=== PATIENT | female | born 1990 | race Caucasian/White ===

== ENCOUNTER 2023-09-23 11:57 | Emergency (ER) | payer MEDICAID, SELFPAY ==
--- NOTE | ~2023-09-23 | US_ITS ---
EXAMINATION: US OBSTETRICAL ULTRASOUND CLINICAL INFORMATION: Low abdominal pain, bleeding. COMPARISON: None available. LMP: 07/24/2023. Gestational age by maternal dates is 8 weeks and 5 days. Estimated date of delivery by maternal dates is 04/29/2024. TECHNIQUE: Ultrasound of the maternal pelvis is performed using transabdominal and transvaginal transducers. Transvaginal imaging is performed due to inadequate visualization transabdominally. M-mode Doppler is also performed. FINDINGS: There is a single intrauterine gestational sac with visible yolk sac, embryo/fetus, and cardiac activity. There is no significant subchorionic hemorrhage or hematoma. HR: 160 beats per minute. CRL (crown rump length): 2.18 cm (8 weeks and 6 days +/- 4 days). JUVENTINO (estimated date of delivery): 04/28/2024 +/- 4 days. MATERNAL ADNEXA: The right maternal ovary measures 3.8 x 1.8 x 2.3 cm. The left maternal ovary measures 2.9 x 1.8 x 1.7 cm. There is no significant maternal adnexal mass. No maternal pelvic ascites. US/US OB <= 14 weeks fetus IMPRESSION: 1. Single intrauterine gestation with ultrasound gestational age of 8 weeks and 6 days +/- 4 days. 2. Estimated date of delivery is 04/28/2024 +/- 4 days. 3. No maternal adnexal mass or pelvic ascites.
--- NOTE | 2023-09-23 12:02 | ED.PREGNANCY ---
HPI - General Chief complaint: Vaginal Bleeding Stated complaint: -severe pain and bleeding Time Seen by Provider: 09/23/23 14:49 Source: patient Mode of arrival: ambulatory Limitations: no limitations History of Present Illness HPI Narrative: Patient is a 33-year-old female , LMP 07/24/2023 presenting to the emergency department reporting 2 positive home tests as well as intermittent spotting of dark red blood for the past 2 weeks and nausea and vomiting daily. She reports that her previous childbirth was in [place], does not have an OBGYN here. She reports the bleeding is very small amounts, not even enough to where a pad, but occasionally she notes when wiping after using the bathroom. Also reports occasional lower abdominal cramping. She denies any concern for STIs, denies any other abnormal vaginal discharge. Denies fevers. Denies back or flank pain. Denies any dysuria, frequency or other urinary symptoms. MD Complaint: vaginal bleeding Onset (ago): day(s) Pain Consistency: intermittent Location: abdomen Severity: mild Quality: Cramping Associated symptoms: nausea and vomiting Vaginal discharge: other (Scant amount of dark red discharge occasionally) Vaginal bleeding: light Date of Last Menstrual Period: 07/24/23 Patient : Yes care: none Related Data Previous Rx's Medication Instructions Recorded cephalexin 500 mg capsule 500 mg PO TID #15 caps 09/23/23 ondansetron 4 mg disintegrating 4 mg PO Q8H PRN nausea and 09/23/23 tablet vomiting #10 tabs Allergies Allergy/AdvReac Type Severity Reaction Status Date / Time No Known Allergies Allergy Verified 09/23/23 12:05 Review of Systems Review of Systems: As per HPI. Yes all other systems are reviewed and are negative Constitutional: Constitutional: Reports as per HPI PMF Past Medical History Date of Last Menstrual Period: 07/24/23 Social History Social History Advance Directives: No Advance Directives Information Provided: No Patient : Yes Physical Exam Vital Signs: Vital Signs: Last Vital Signs Temp 98.7 F 09/23/23 12:06 Pulse 81 09/23/23 12:06 Resp 17 09/23/23 12:06 BP 128/75 09/23/23 12:06 Pulse Ox 97 09/23/23 12:06 O2 Del Method Room Air 09/23/23 12:06 BMI result Body Mass Index 25.5 Vital signs have been reviewed and appear to be correct. Blood pressure normal. Heart rate normal. Respiratory rate normal. Temperature normal. Oxygen saturation normal. Const: General: cooperative, healthy appearing and no acute distress Orientation/consciousness: oriented to person, oriented to place, oriented to time and patient oriented x3 Limitations: no limitations HEENT: Head: Yes normocephalic and Yes atraumatic Ears: external ears normal General nose exam: Normal external nose present Face and sinus: Yes face symmetric Mouth: oropharynx normal and moist mucous membranes Throat: Yes uvula midline Eyes: Pupils: Equal, round and reactive pupils present Neck: Neck: Yes normal visual inspection and Yes supple Resp: Effort & Inspection: normal respiratory effort and able to speak in complete sentences Auscultation: clear to auscultation bilaterally Cardio: Rate: regular rate Rhythm: regular rhythm Heart sounds: S1 normal heart sound present and S2 normal heart sound present GI: Palpation (GI): Soft to palpation and nontender Auscultation: normoactive bowel sounds : General: Yes no CVA tenderness Back/Spine/Pelvis: Back: no CVA tenderness Skin: General skin exam: elasticity normal and turgor normal Neuro: General: oriented to person, oriented to place, oriented to time, patient oriented x3, moves all extremities, no focal motor deficits and CN's II-XI intact bilaterally Cranial nerves: Yes Equal, round and reactive pupils present Cognition (Neuro): normal cognition Extrem: General: Yes full ROM, Yes no pedal edema and Yes no calf tenderness Psych: Mental Status: mental status grossly normal Affect: normal affect Thought process: Normal thought process present Course Course Course Narrative: RME: 33 year-old F presenting to the ED c/o 2 positive home tests last week, now with lower abdominal pain and vaginal bleeding/spotting (dark red) x 15 days. Has not had any care. LMP 07/24/23. +N/V and inability to tolerate PO Labs, UA, US ordered Full HPI, ROS and PE to be performed by primary ED provider. Medical Decision Making Medical Decision Making MDM Narrative: Patient is a 33-year-old female , LMP 07/24/2023 presenting to the emergency department reporting 2 positive home tests as well as intermittent spotting of dark red blood for the past 2 weeks and nausea and vomiting daily. On exam patient is awake, A+Ox3, VS WNL, afebrile, normal neurological exam without focal deficits, physical exam findings as above. Given reported symptoms and physical exam findings, initial differential includes intrauterine , ectopic , implantation bleeding. Labs notable for RH positive, no Rhogam indicated, no evidence of anemia. Ultrasound notable for Single intrauterine gestation with visible yolk sac, cardiac activity. My interpretation is in agreement with the radiologist's interpretation. Will refer patient to [facility] microstrategy reports developer as patient does not have an OBGYN in the [facility]. Patient declined pelvic exam/STI testing at this time, advised patient to follow up on this with [facility]. UA notable for trace leukocytes, negative nitrites, 1+ bacteria, 6-10 epithelials. Likely contamination but will treat for UTI given with keflex. Will prescribe zofran for nausea. Return precautions discussed at bedside. Patient verbalized understanding of and agreement with plan. Differential Diagnosis Differential Diagnoses: The differential diagnosis associated with the presentation includes As per MDM. Lab Data [facility] Lab Attestation statement: I reviewed the patient's lab results. As per MDM. 09/23/23 12:35 09/23/23 12:35 Labs: Lab Results 09/23/23 09/23/23 Range/Units 12:34 12:35 WBC 9.7 (4.8-10.8) X10*3/uL RBC 3.91 L (4.20-5.50) X10*6/uL Hgb 12.2 (12.0-16.0) g/dl Hct 35.6 L (37.0-47.0) % MCV 91.0 (80.0-98.0) fL MCH 31.2 (27.0-33.0) pg MCHC 34.3 (31.0-35.0) g/dl RDW 11.9 (11.0-16.0) % Plt Count 291 (160-400) X10*3/uL MPV 9.8 (9.4-12.3) fL Immature Gran % (Auto) 0.5 H (0.0-0.4) % Neut % (Auto) 71.6 (45-73) % Lymph % (Auto) 22.0 (20-40) % Gregory % (Auto) 4.8 (2-11) % Eos % (Auto) 0.9 (0-4) % Baso % (Auto) 0.2 (0-2) % Lymph # (Auto) 2.1 (1.2-4.9) X10*3/uL Gregory # (Auto) 0.5 (0.1-1.2) X10*3/uL Eos # (Auto) 0.1 (0.0-0.4) X10*3/uL Baso # (Auto) 0.0 (0.0-0.2) X10*3/uL Abs Immat Gran (auto) 0.05 H (0.00-0.03) X10*3/uL Absolute Neuts (auto) 6.9 (2.0-8.3) x10*3/uL Absolute Nucleated RBC 0.000 (0.0-0.012) X10*3/uL Nucleated RBC % (auto) 0.0 (0.0-0.2) /100WBC Sodium 135 (135-145) mmol/L Potassium 3.6 (3.3-5.1) mmol/L Chloride 103 (96-108) mmol/L Carbon Dioxide 24 (22-29) mmol/L Anion Gap 12 (12-20) BUN 6 L (9-16) mg/dL Creatinine 0.61 (0.5-1.4) mg/dL Estim Creat Clear Calc 129.6 Estimated GFR > 60 Random Glucose 95 (60-115) mg/dL Calcium 9.7 (8.4-10.2) mg/dL Magnesium 1.7 (1.6-2.6) mg/dL Total Bilirubin 0.4 (0.0-1.0) mg/dL Direct Bilirubin 0.2 (0.0-0.5) mg/dL AST 48 H (5-31) U/L ALT 111 H (0-31) U/L Alkaline Phosphatase 82 (39-117) U/L Total Protein 7.9 (6.5-8.0) g/dL Albumin 4.3 (3.5-5.0) g/dL Lipase 19 (8-78) U/L Beta HCG, Quant 146589 mIU/mL Urine Color Dark Yellow Urine Appearance Cloudy Urine pH 5.5 (5.0-9.0) Ur Specific [place] >= 1.030 H (1.005-1.025) Urine Protein Trace (Neg-Trace) mg/dL Urine Glucose (UA) Negative (Negative) mg/dL Urine Ketones Trace (Negative) mg/dL Urine Blood Moderate (2+) H (Negative) Urine Nitrite Negative (Negative) Ur Leukocyte Esterase Trace H (Negative) Urine RBC 6-10 H (0-2) /HPF Urine WBC 0-5 (0-5) /HPF Ur Squamous Epith Cells 6-10 (0-2) /HPF Urine Bacteria 1+ (None Seen) Hyaline Casts 0-2 (0-2) /LPF Blood Type O Positive Independent Interpretation I performed an independent interpretation of an: Ultrasound Interpretation: Single intrauterine gestation with visible yolk sac, cardiac activity Radiology Impression Discussion of test interpretation with radiology: I have reviewed the radiologist's reading. Radiologist Impression: US/US OB <= 14 weeks fetus IMPRESSION: 1. Single intrauterine gestation with ultrasound gestational age of 8 weeks and 6 days +/- 4 days. 2. Estimated date of delivery is 04/28/2024 +/- 4 days. 3. No maternal adnexal mass or pelvic ascites. External Record Review External record reviewed: Inpatient record, Office record and Outpatient record Prescription Management I considered prescription management with: Antibiotic and Other Discharge Plan Discharge Clinical Impression: Threatened , Vaginal bleeding, Intrauterine Patient Disposition: Home, Self-Care Instructions: Threatened Miscarriage (ED), (ED), Urinary Tract Infection in (ED), at 7 to 10 Weeks (ED) Additional Instructions: Usted fue evaluada hoy en el departamento de emergencias por sangrado vaginal beau el embarazo. Deber? realizar un seguimiento con un obstetra/ginec?logo lo antes posible; llame a los n?meros proporcionados para establecer la atenci?n con un obstetra/ginec?logo. Est? recibiendo tratamiento por cyndie infecci?n del tracto urinario con antibi?ticos; complete el tratamiento completo seg?n lo prescrito. Le recetan ondansetr?n, que puede tati cada 8 horas para las n?useas y los v?mitos. Debe regresar al departamento de emergencias si presenta un dolor abdominal que empeora, fiebre de 100.4 F o m?s, sangra a cuong?s de m?s de cyndie toalla sanitaria por hora o tiene cualquier otro s?ntoma preocupante. Prescriptions: New ondansetron 4 mg tablet,disintegrating 4 mg PO Q8H PRN (Reason: nausea and vomiting) Qty: 10 0RF cephalexin 500 mg capsule 500 mg PO TID Qty: 15 0RF Referrals: [facility] [Provider Group] [facility] [Provider Group] Print Language: Mongolian
[2023-09-23 12:06] VITALS: BP 128/75; PULSE 81; RESP 17; TEMP 37.1; O2SAT 97; BMI 25.5
[2023-09-23 12:39] LABS: MANUAL DIFF FLAG NO
[2023-09-23 12:43] LABS: Appearance Urine Cloudy; Color Urine Dark Yellow; Glucose Urine UA Negative (Negative); Leukocyte Esterase Urine Trace (Negative); Nitrite Urine Negative (Negative); PH 5.5 (5.0-9.0); UMIC TRIGGER UACC YES; Urine Blood Moderate (2+) (Negative); Urine Ketones Trace mg/dL (Negative); Urine Protein Trace mg/dL (Neg-Trace)
[2023-09-23 12:45] LABS: Basophils Percent Auto 0.2 % (0-2); Eosinophils Absolute Auto 0.1 X10*3/uL (0.0-0.4); Eosinophils Percent Auto 0.9 % (0-4); Hematocrit 35.6 % (37.0-47.0); Hemoglobin 12.2 g/dl (12.0-16.0); Imm Gran Abs Auto 0.05 X10*3/uL (0.00-0.03); Imm Gran Pct Auto 0.5 % (0.0-0.4); Lymphocytes Absolute Auto 2.1 X10*3/uL (1.2-4.9); Mean Corpuscular HGB Conc 34.3 g/dl (31.0-35.0); Mean Corpuscular Hemoglobin 31.2 pg (27.0-33.0); Mean Platelet Volume 9.8 fL (9.4-12.3); Monocytes Absolute Auto 0.5 X10*3/uL (0.1-1.2); Monocytes Percent Auto 4.8 % (2-11); Neutrophils Absolute Auto 6.9 x10*3/uL (2.0-8.3); Neutrophils Percent Auto 71.6 % (45-73); Platelet Count 291 X10*3/uL (160-400); Red Blood Count 3.91 X10*6/uL (4.20-5.50); Red Cell Distribution Width 11.9 % (11.0-16.0); White Blood Count 9.7 X10*3/uL (4.8-10.8)
[2023-09-23 13:00] LABS: Bacteria Urine 1+ (None Seen); Hyaline Casts Urine 0-2 /LPF (0-2); Specific Gravity - Urine >= 1.030 (1.005-1.025); WBC Urine 0-5 /HPF (0-5)
[2023-09-23 13:06] LABS: Alanine Aminotransferase 111 U/L (0-31); Albumin Level 4.3 g/dL (3.5-5.0); Alkaline Phosphatase 82 U/L (39-117); Anion Gap 12 (12-20); Aspartate Amino Transferase 48 U/L (5-31); Bilirubin Direct 0.2 mg/dL (0.0-0.5); Bilirubin Total 0.4 mg/dL (0.0-1.0); Blood Urea Nitrogen 6 mg/dL (9-16); Calcium 9.7 mg/dL (8.4-10.2); Carbon Dioxide 24 mmol/L (22-29); Chloride 103 mmol/L (96-108); Creatinine Clr Calc Pharmacy 129.6; Estimated Glomerular Filt Rate > 60; Glucose Random 95 mg/dL (60-115); Lipase 19 U/L (8-78); Magnesium 1.7 mg/dL (1.6-2.6); Potassium 3.6 mmol/L (3.3-5.1); Sodium 135 mmol/L (135-145); Total Protein 7.9 g/dL (6.5-8.0)
== END 2023-09-23 17:06 | disposition home or self-care (01) ==
PROVIDERS: Physician Assistant; Emergency Provider Emergency Medicine
DX: O20.0 Threatened abortion (principal); O21.9 Vomiting of pregnancy, unspecified; Z3A.08 8 weeks gestation of pregnancy
CPT/HCPCS: 36415; 76801; 80048; 80076; 81001; 83690; 83735; 84702; 85025; 86900; 86901; 99282; 99284